=== PATIENT | male | born 1995 | race African-American/Black ===

== ENCOUNTER 2016-11-09 19:53 | Emergency (ER) | payer OTHER ==
[~2016-11-09] VITALS: Ht 182.9 cm; Wt 204.5 kg
[~2016-11-09 19:53] MED LIST: CLARITIN10 MG PO; IBUPROFEN600 MG PO; Keflex PO; LEVAQUIN750 MG PO; Milk Of Magnesia,MOM PO; PREDNISONE50 MG PO; Senokot,Sennagen PO; ULTRAM50 MG PO; VENTOLIN HFA18 GM IH; oxyCODONE PO
[2016-11-09] MEDS ORDERED: KENALOG,ARISTOC15 G3 TP (20:49)
[2016-11-09 21:10] VITALS: BP 134/85
== END 2016-11-09 21:10 | disposition home or self-care (01) ==
LOC: EME 19:53
DX: L30.9 Dermatitis, unspecified (principal); F17.200 Nicotine dependence, unspecified, uncomplicated
CPT/HCPCS: 99281; 99283